=== PATIENT | female | born 1960 | race Caucasian/White ===

== ENCOUNTER 2019-01-21 15:35 | Inpatient (IN) | payer BC ==
[~2019-01-21 15:35] MED LIST: ISOVUE-370 76%-LOCM 1 ML ONE
[2019-01-21 16:39] LABS: #Eosinphils 0.1 thou/uL (0.0-0.7); #Lymphocytes 0.7 thou/uL (1.20-3.40); #Monocytes 0.7 thou/uL (0.11-0.59); #Neutrophils 6.6 thou/uL (1.40-6.50); %Basophils 0.4 % (0.0-1.0); %Eosinophils 0.9 % (0.0-10.0); %Lymphocytes 8.4 % (21.0-51.0); %Monocytes 8.1 % (0.0-10.0); %Neutrophils 82.2 % (42.0-75.0); Hemoglobin 15.1 g/dL (12.0-16.0); Mean Corpuscular Hemoglobin 31.5 pg (27.0-31.0); Mean Corpuscular Volume 92.8 fL (78.0-98.0); Mean Platelet Volume 7.2 fL (7.4-10.4); Platelet Count 236 thou/uL (130-400); RBC Distribution Width 11.8 % (11.5-14.5)
[2019-01-21 17:01] LABS: ALT (SGPT) 14 U/L (8-55); AST (SGOT) 23 U/L (5-34); Acetaminophen Less than 6.0 mcg/mL (10.0-30.0); Albumin 4.3 g/dL (3.5-5.0); Alcohol Less than 10 mg/dL (Less than 10); Alkaline Phosphatase 107 U/L (40-110); Anion Gap 14 mmol/L (10-20); BUN (Urea Nitrogen) 25 mg/dL (9.8-20.1); Bilirubin, Total 0.2 mg/dL (0.2-1.2); CK (CPK) 190 U/L (29-168); Calc. Creatinine Clearance 0 mL/min (70-130); Calcium 9.4 mg/dL (7.8-10.44); Carbon Dioxide 23 mmol/L (22-29); Chloride 104 mmol/L (98-107); Estimated GFR-MDRD 42; Globulin 2.8 g/dL (2.4-3.5); Glucose 114 mg/dL (70-105); Potassium 4.1 mmol/L (3.5-5.1); Protein, Total 7.1 g/dL (6.0-8.3); Salicylate Less than 8.0 mg/dL (15.0-30.0); Sodium 137 mmol/L (136-145)
--- NOTE | 2019-01-21 17:59 | CT ---
EXAM: Brain CTWithout contrast: HISTORY: Seizure COMPARISON: None FINDINGS: No focal mass or midline shift. No intra or extra-axial hemorrhage. Sinuses and mastoids are clear of acute process. IMPRESSION: No mass or bleed or other significant acute intracranial process.
--- NOTE | 2019-01-21 18:09 | CT ---
Exam: CT angiogram chest with 3-D rendering: CT angiogram abdomen with 3-D rendering: HISTORY: Seizure diminished pulses FINDINGS: Incidental 0.9 x 1.1 cm left thyroid gland nodule. No significant acute pulmonary parenchymal process . No pleural effusion or pericardial effusion. No evidence for aortic aneurysm or dissection. The visualized right and left common carotid arteries and vertebral arteries are intact. Visualized right left subclavian arteries are intact. There is a small hiatal hernia. The abdominal aorta is unremarkable. No evidence for abdominal aortic aneurysm or dissection. There i s a scar involving the lateral anterior aspect of the right kidney. Visualized abdominal viscera is unremarkable. Superior mesenteric, celiac, inferior mesenteric, and bilateral renal arteries are unre markable. IMPRESSION: Unremarkable chest and abdomen CT angiogram. Small left lobe of thyroid nodule. Other findings as abo ve.
[2019-01-21 18:17] LABS: Bilirubin Negative (Negative); Blood, Urine Negative (Negative); Clarity Clear (Clear); Glucose, Urine (Dipstick) Normal (Negative); Leukocyte Negative Leu/uL (Negative); Nitrite Negative (Negative); Protein, Urine (Dipstick) Negative (Neg-Trace); Urobilinogen Normal mg/dL (Less than 2)
[2019-01-21 18:21] LABS: Pregnancy Test - Urine (BHCG) Negative (Negative); Pregu Control Bar Appear? YES (CONTROL BAR); Specific Gravity 1.018 (1.002-1.036)
[2019-01-21 18:22] LABS: Pregu Control Background? CLEAR/WHITE (CLR/WHITE)
[2019-01-21 18:28] LABS: Amphetamine Not Detected (NotDetected); Barbiturates Screen Not Detected (NotDetected); Benzodiazepine Screen Detected (NotDetected); Cocaine Metabolite Screen Not Detected (NotDetected); Medtox Control Line Valid? VALID (VALID); Medtox Reader # READER 4; Methadone Not Detected (NotDetected); Methamphetamine Not Detected (NotDetected); Opiate Screen Not Detected (NotDetected); Oxycodone Screen Not Detected (NotDetected); Phencyclidine (PCP) Not Detected (NotDetected); THC/Cannabinoid Screen Not Detected (NotDetected); Tricyclic Screen Not Detected (NotDetected)
[2019-01-21] MEDS ORDERED: Lorazepam 2 MG/ML VIAL SLOW IVP PRN (20:16)
[2019-01-21] MEDS ORDERED: Acetaminophen 325 MG TAB PO PRN (20:16)
[2019-01-21] MEDS ORDERED: Guaifenesin DM 100-10/5 ML UDCUP PO PRN (20:16)
[2019-01-21 20:34] LABS: Pregs Control Background? CLEAR/WHITE (CLR/WHITE); Pregs Control Bar Appear? YES (CONTROL BAR)
[2019-01-21 20:35] LABS: BHCG - Serum Indeterminate (NEGATIVE)
--- NOTE | 2019-01-21 21:09 | HP ---
REASON FOR ADMISSION: New onset seizure. HISTORY OF PRESENTING ILLNESS: Around 1:00 p.m., the patient developed headache , which was not her usual migraine headache. This was all over her scalp area. Soon, the patient had an episode of generalized seizure where she stiffened up. She stiffened all 4 extremities and was rocking up and down on the couch. She was laying on the couch when this happened. at bedside witnessed the seizure episode, which lasted for 10 minutes. Has a postictal video showing her snoring and blood frothing at the side of her mouth. This lasted for nearly 10 minutes with postictal period. The patient finally came around, but was confused and was not herself. EMS was summoned. It took nearly 45 minutes for the patient to recognize her and her surroundings. She has never had a seizure before. The patient has been taking Bactrim from last 3 days for right-sided dental caries. She also took a tablet of Benadryl for allergic symptoms. The seizure happened when she tried to take a nap on the couch. Prior to onset of seizure, the patient screamed loudly and was howling. Currently, she is fully oriented and moves all extremities. Has no specific weakness on any side. No history of trauma. 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 at bedside mentions that she has been having mild confusion episodes from last 1 week or so. No history of fever, cough, or expectoration. No complaints of chest pain, palpitation, PND, or orthopnea. PAST MEDICAL AND SURGICAL HISTORY: History of atrial fibrillation with ablation in the past, migraine headaches. CURRENT MEDICATIONS: Pristiq 50 mg q.a.m., sumatriptan p.r.n. for migraine. She had been to [facility] 65 months back for severe migraine episode on [address] and had a CT brain done then which did not reveal any abnormalities. ALLERGIES: ALLERGIC TO PENICILLIN. PERSONAL HISTORY: Does not abuse alcohol or drugs. No history of smoking. Lives with her . FAMILY HISTORY: Mother had history of corticobasal degeneration. at the age of 73 years. Father is living, has history of coronary artery disease and dementia. Sister of leukemia at the age of 56 years. CODE STATUS: Full. Power of divorce attorney is her . REVIEW OF SYSTEMS: CONSTITUTIONAL: Negative for weight loss or gain, ability to conduct usual activities. SKIN: Negative for rash, itching. EYES: Negative for double vision, pain. ENT/MOUTH: Negative for nose bleeding, neck stiffness, pain, tenderness. CARDIOVASCULAR: Negative for palpitations, dyspnea on exertion, orthopnea. RESPIRATORY: Negative for shortness of breath, wheezing, cough, hemoptysis, fever or night sweats. GASTROINTESTINAL: Negative for poor appetite, abdominal pain, heartburn, nausea , vomiting, constipation, or diarrhea. GENITOURINARY: Negative for urgency, frequency, dysuria, nocturia. MUSCULOSKELETAL: Negative for pain, swelling. NEUROLOGIC/PSYCHIATRIC: Negative for anxiety, depression. ALLERGY/IMMUNOLOGIC: Negative for skin rash, bleeding tendency. PHYSICAL EXAMINATION: GENERAL: The patient is a 58-year-old female, who is currently not in any acute distress. VITAL SIGNS: Blood pressure 134/80, pulse 80 per minute, respiratory rate 18 per minute, temperature 99.7 degrees Fahrenheit, saturating 96% on room air. NECK: Supple. No elevated JVD. HEENT: Eyes; extraocular muscles intact. Pupils reacting to light. Oral cavity, the patient has a laceration on the lower lip at midline on the labial aspect. No tongue lacerations. No exudates or congestion seen. CARDIOVASCULAR SYSTEM: S1 and S2 heard. Regular rhythm. RESPIRATORY SYSTEM: Air entry 1+ bilateral. No rales or rhonchi. ABDOMEN: Soft. Bowel sounds heard. No tenderness, rigidity, or guarding. EXTREMITIES: No peripheral edema or calf tenderness. VASCULAR SYSTEM: Peripheral pulses 2+ bilateral. No ischemic ulcerations or gangrene. CENTRAL NERVOUS SYSTEM: No gross focal deficits noted. The patient is alert, awake, and oriented well. PSYCHIATRIC SYSTEM: The patient's mood is euthymic. No hallucinations or delusions. LABORATORY DATA: CT dissection protocol done in the ER was unremarkable. There is a small incidental note of left lobe thyroid nodule which is 1 x [address] brain without contrast shows no mass or bleed. No significant acute intracranial process. Sinuses and mastoids are clear of acute process. Urine drug screen is positive for benzodiazepines. Plasma alcohol less than 10. UA shows no evidence of infection. Urine test is negative. BUN 25, creatinine 1.3, serum bicarb 23, serum glucose 114, CK levels 190, prolactin of 16, albumin 4.3. Troponin x1 negative. Liver enzymes within normal limits. Electrolytes stable. White count of 8, H and H 15 and 44, platelet count is 236, MCV 92 with 82% neutrophils. CLINICAL IMPRESSION AND PLAN: The patient will be admitted to stroke unit for new onset seizure. This appears to be tonic colonic seizure, although her describes as her stiffening up and rocking on the bed up and down. She has had a lip laceration as well and postictal video is there for confirmation. It is unclear the inciting event for seizure. Likely, the patient was exhausted yesterday. Although, also mentions that she has had confusion episodes from last one week, which are momentary in nature. We will obtain MRI with and without contrast. EEG and Neurology consultation with Dr. Aime Swanson. She will be on normal saline at 100 mL per hour. We will hold off on any antiepileptic drugs unless the patient develops another episode of seizure. She will be on seizure precautions, aspiration precautions, and fall precautions on the floor. TSH for the morning will be obtained. Pristiq will be continued as before. We will continue to closely monitor her on stroke floor. Job ID: [id number] [facility]
[2019-01-21 22:41] VITALS: BMI 24.4
[2019-01-22] MEDS: Sodium Chloride 0.9% 1,000 ML IV SCH ×2 (00:19→12:05)
[2019-01-22 05:13] LABS: #Eosinphils 0.1 thou/uL (0.0-0.7); #Lymphocytes 1.3 thou/uL (1.20-3.40); #Neutrophils 4.4 thou/uL (1.40-6.50); %Basophils 0.4 % (0.0-1.0); %Eosinophils 1.8 % (0.0-10.0); %Lymphocytes 18.5 % (21.0-51.0); %Monocytes 14.4 % (0.0-10.0); %Neutrophils 64.9 % (42.0-75.0); Hemoglobin 13.3 g/dL (12.0-16.0); Mean Corpuscular HGB CONC 33.8 g/dL (32.0-36.0); Mean Corpuscular Hemoglobin 31.2 pg (27.0-31.0); Mean Corpuscular Volume 92.3 fL (78.0-98.0); Mean Platelet Volume 7.6 fL (7.4-10.4); Platelet Count 209 thou/uL (130-400); RBC Distribution Width 11.8 % (11.5-14.5); Red Blood Cell (RBC) Count 4.25 mill/uL (4.20-5.40); White Blood Cell (WBC) Count 6.8 thou/uL (4.8-10.8)
[2019-01-22 05:30] LABS: Anion Gap 9 mmol/L (10-20); BUN (Urea Nitrogen) 17 mg/dL (9.8-20.1); Calc. Creatinine Clearance 65 mL/min (70-130); Calcium 8.9 mg/dL (7.8-10.44); Carbon Dioxide 25 mmol/L (22-29); Chloride 111 mmol/L (98-107); Estimated GFR-MDRD 64; Glucose 90 mg/dL (70-105); Potassium 3.9 mmol/L (3.5-5.1); Sodium 141 mmol/L (136-145)
[2019-01-22] MEDS ORDERED: Enoxaparin Sodium 40 MG/0.4 ML SYRINGE SC SCH (09:00)
[2019-01-22] MEDS ORDERED: Sulfameth/Trimethoprim SS 400-80MG TAB PO SCH (09:00)
[2019-01-22] MEDS: Famotidine 20 MG TAB PO SCH ×2 (11:08→15:49)
--- NOTE | 2019-01-22 15:31 | EEG ---
Referring Physician: Dione GRADY EEG # [id number] TEST TYPE: ROUTINE PORTABLE INPATIENT REPORT: AN EEG USING THE INTERNATIONAL TEN-TWENTY SYSTEM OF ELECTRODE PLACEMENT WAS PERFORMED. The waking background is a high amplitude 8.5 hertz alpha frequency. The patient remained awake throughout the study. Hyperventilation and photic stimulation were unremarkable. No epileptiform features were seen. IMPRESSION: THIS IS A NORMAL AWAKE EEG. [employer] Truck Driver: FRAN Hydrographic Surveyor: [email or web address].[email or web address] LOWE
[2019-01-22 15:54] VITALS: BP 118/66; TEMP 99.2
--- NOTE | 2019-01-22 15:54 | PDOC.HOSPP ---
- Subjective Encounter Date: 01/22/19 Encounter Time: 10:00 Subjective: no further seizure episodes after hospitalization is alert and oriented well - Objective Vital Signs & Weight: Vital Signs (12 hours) Temp Pulse Resp BP Pulse Ox 01/22/19 12:13 98.8 F 73 16 118/67 95 01/22/19 07:50 98.4 F 74 16 121/66 97 01/22/19 03:57 97.8 F 74 16 112/64 97 Weight Weight 133 lb 8 oz I&O: 01/21/19 01/22/19 01/23/19 06:59 06:59 06:59 Intake Total 981 Balance 981 Result Diagrams: 01/22/19 04:25 01/22/19 04:25 Hospitalist ROS - Medication Medications: Active Medications Generic Name Dose Route Start Last Admin Trade Name Freq PRN Reason Stop Dose Admin Acetaminophen 650 mg 01/21/19 20:16 01/22/19 11:08 Tylenol PO 650 mg Q4H PRN Administration Headache/Fever/Mild Pain (1-3) Enoxaparin Sodium 40 mg 01/22/19 09:00 01/22/19 11:09 Lovenox SC Not Given 0900 LUIS EDUARDO Famotidine 20 mg 01/22/19 09:00 01/22/19 15:49 Pepcid PO Not Given DAILY LUIS EDUARDO Sodium Chloride 1,000 mls @ 100 mls/hr 01/21/19 20:30 01/22/19 12:05 Normal Saline 0.9% IV 01/22/19 16:29 1,000 mls .Q10H LUIS EDUARDO Administration Lorazepam 2 mg 01/21/19 20:16 01/22/19 11:08 Ativan SLOW IVP 2 mg Q15M PRN Administration Seizures Trimethoprim/Sulfamethoxazole 1 tab 01/22/19 09:00 01/22/19 11:09 Bactrim Ss PO Not Given BID LUIS EDUARDO - Exam General Appearance: NAD, awake alert Eye: PERRL, anicteric sclera ENT: no oropharyngeal lesions, moist mucosa Neck: supple, no JVD Heart: RRR, no murmur Respiratory: no wheezes, no rales Gastrointestinal: soft, non-tender, non-distended, normal bowel sounds Extremities: no cyanosis, no edema Neurological: cranial nerve grossly intact, no focal deficits Psychiatric: normal affect, A&O x 3 Hosp A/P (1) Seizure Code(s): R56.9 - UNSPECIFIED CONVULSIONS Status: Acute (2) Migraine Code(s): G43.909 - MIGRAINE, UNSP, NOT INTRACTABLE, WITHOUT STATUS MIGRAINOSUS Status: Chronic Qualifiers: Migraine type: without aura (3) Depression Code(s): F32.9 - MAJOR DEPRESSIVE DISORDER, SINGLE EPISODE, UNSPECIFIED Status : Chronic Qualifiers: Depression Type: major depressive disorder (4) Dental caries Code(s): K02.9 - DENTAL CARIES, UNSPECIFIED Status: Acute - Plan one episode of seizure at home, unclear etiology has migraine headache now, will give triptan, morphine prn eeg shows no epileptic foci await mri results, neuro opinion dc plan in am
[2019-01-22] MEDS ORDERED: Rizatriptan Benzoate 10 MG MLT TAB PO PRN (15:56)
[2019-01-22] MEDS ORDERED: Ketorolac Tromethamine 30 MG/ML VIAL IVP PRN (15:56)
[2019-01-22] MEDS ORDERED: SUMAtriptan Succinate 50 MG TAB PO SCH (16:45)
--- NOTE | 2019-01-22 17:31 | MRI ---
MRI BRAIN WITHOUT CONTRAST: Date: 01/22/19 HISTORY: Seizure disorder. FINDINGS: Correlation is made with the CT scan from previous day. No restricted diffusion is seen. No evidence of infarct, hemorrhage, midline shift, or abnormal extra -axial fluid collections are noted. Ventricular size is normal and the basilar cisterns are patent. N o tonsillar herniation is seen. The visualized paranasal sinuses and mastoid air cells are well aerat ed. IMPRESSION: No evidence of acute intracranial process. POS: [facility]PC
--- NOTE | 2019-01-22 18:21 | DIS ---
DATE OF ADMISSION: 01/21/2019 DATE OF DISCHARGE: 01/22/2019 DISCHARGE DISPOSITION: Home. PRIMARY DISCHARGE DIAGNOSIS: New onset seizure disorder. SECONDARY DISCHARGE DIAGNOSES: Migraine, depression. PROCEDURES DONE DURING HOSPITALIZATION: MRI of brain without contrast done shows no evidence of acute intracranial process. CT dissection protocol was unremarkable. There was a small left lobe thyroid nodule measuring 0.[address] brain showed no mass or bleed. No acute intracranial process. EEG done showed normal awake EEG. Blood cultures x2, preliminary results, no growth. H and H 13 and 39, platelet count 209, MCV 92 with 64% neutrophils. BUN 17, creatinine 0.9. TSH 1.21, prolactin levels were 16.76. CK levels 190. One set of troponin negative. Urine test negative. Urine drug screen was positive for benzodiazepines. Plasma alcohol less than 10. DISCHARGE MEDICATIONS: 1. Keppra 500 mg p.o. twice daily. 2. Zolmitriptan 2.5 mg p.o. q.2 hourly p.r.n. for migraine. 3. Bactrim 1 tab double-strength for dental caries. 4. Pristiq 50 mg p.o. at bedtime. ALLERGIES: ALLERGIC TO PENICILLIN. INPATIENT CONSULT: Dr. Swanson for Neurology. DISCHARGE PLAN: The patient to follow up with Dr. Angela Rojas, her primary care physician in [address] Swanson in 2 to 3 weeks. BRIEF COURSE DURING HOSPITALIZATION: The patient initially got admitted on the with one episode of grand mal seizure at home with lip laceration as well. She had postictal phase lasting nearly 15 minutes. This was a new onset seizure. The patient has had off and on confusion for a week or so with no seizure as such likely prodrome of symptoms for upcoming seizure. She was evaluated by Dr. Swanson. In view of high risk for recurrent seizure, the patient was placed on Keppra 500 mg p.o. twice daily. No obvious inciting events were noted. EEG did not reveal any epileptiform focus. MRI brain did not reveal any mass and CAT scan did not show any bleed in the brain. She is hemodynamically and neurologically stable. She has been cleared by Dr. Swanson for discharge today. No further seizure episodes were witnessed during her stay here. Please see a [id number] documentation for the day of discharge on [facility]. Job ID: [id number] [facility]
[2019-01-22] MEDS ORDERED: Venlafaxine HCl XR 75 MG CAP PO SCH (21:00)
[2019-01-22] MEDS ORDERED: levETIRAcetam 500 MG TAB PO SCH (21:00)
--- NOTE | 2019-01-27 14:28 | EKG ---
Test Reason : SEIZURES Blood Pressure : / mmHG Vent. Rate : 087 BPM Atrial Rate : 087 BPM P-R Int : 110 ms QRS Dur : 056 ms QT Int : 336 ms P-R-T Axes : 061 043 008 degrees QTc Int : 404 ms Sinus rhythm with short [place] Low voltage QRS Septal infarct , age undetermined Abnormal ECG Confirmed by CELIA MUÑOZ, UNA ([id number]), editor at large EDNA HAYDEN ([id number]) on 01/27/2019 2:28:18 PM Referred By: HAND Confirmed By:UNA YANG MD
== END 2019-01-22 17:30 | disposition home or self-care (01) | DRG 101 ==
LOC: ERS 15:35 → OBSVTOIN 17:34 → 2SE 17:34
PROVIDERS: ADMIT Internal Medicine; ATTEND Internal Medicine
DX: G40.409 Other generalized epilepsy and epileptic syndromes, not intractable, without status epilepticus (principal); G43.909 Migraine, unspecified, not intractable, without status migrainosus; F32.9 Major depressive disorder, single episode, unspecified; K02.9 Dental caries, unspecified; Z88.0 Allergy status to penicillin; Z79.899 Other long term (current) drug therapy
CPT/HCPCS: 36415; 70450; 70551; 71275; 72191; 74175; 80048; 80053; 80306; 80307; 81003; 81025; 82550; 83735; 84146; 84443; 84484; 84703; 85025; 87040; 87086; 93005; 95816; 95819; 96360; 96361; J2060; Q9966

== ENCOUNTER 2020-03-11 09:00 | Outpatient (CLI) | payer BC ==
--- NOTE | 2020-03-11 10:03 | MMO ---
Bilateral MAMMO Bilat Screen [facility]. CLINICAL HISTORY: Patient is 59 years old and is seen for screening. The patient has no family history of breast cancer. The patient has no personal history of cancer. VIEWS: The views performed were: bilateral craniocaudal with tomosynthesis and bilateral mediolateral oblique with tomosynthesis. This study has been interpreted with the assistance of computer-aided detection. MAMMOGRAM FINDINGS: There are scattered fibroglandular densities. There are no suspicious masses, suspicious calcifications, or new areas of architectural distortion. IMPRESSION: THERE IS NO MAMMOGRAPHIC EVIDENCE OF MALIGNANCY. A ROUTINE FOLLOW-UP MAMMOGRAM IN 1 YEAR IS RECOMMENDED. THE RESULTS OF THIS EXAM WERE SENT TO THE PATIENT. ACR BI-RADS Category 1 - Negative MAMMOGRAPHY NOTE: 1. A negative mammogram report should not delay a biopsy if a dominant of clinically suspicious mass is present. 2. Approximately 10% to 15% of breast cancers are not detected by mammography. 3. Adenosis and dense breasts may obscure an underlying neoplasm. Reported by: MICHELE BLANCA MD Electonically Signed: [id number]
== END 2020-03-11 09:01 | disposition home or self-care (01) ==
LOC: BICMAMMO 09:00
PROVIDERS: ATTEND Clinical Nurse Specialist Family Health
DX: Z12.31 Encounter for screening mammogram for malignant neoplasm of breast (principal)
CPT/HCPCS: 77063; 77067

== ENCOUNTER 2021-08-10 09:48 | Outpatient (CLI) | payer BC | END 2021-08-10 09:49 | disposition home or self-care (01) | LOC: BICMAMMO 09:48 | PROVIDERS: ATTEND Family Medicine | DX: Z12.31 Encounter for screening mammogram for malignant neoplasm of breast (principal) | CPT/HCPCS: 77063; 77067 ==